=== PATIENT | female | born 1985 | race Hispanic/Latino ===

== ENCOUNTER 2022-01-18 23:06 | Emergency (ER) | payer OTHER ==
[2022-01-19] MEDS ORDERED: Dexamethasone 10 MG/ML VIAL ONE (03:33)
== END 2022-01-19 03:25 | disposition home or self-care (01) ==
LOC: CSHERS 23:06
DX: J02.9 Acute pharyngitis, unspecified (principal)
CPT/HCPCS: 87081; 87430; 99283; J1100